=== PATIENT | female | born 1970 | race Caucasian/White ===

== ENCOUNTER 2019-11-11 13:03 | Emergency (ER) | payer BC, SELFPAY ==
[2019-11-11 13:05] VITALS: BP 154/94; PULSE 74; RESP 16; TEMP 37; O2SAT 100; BMI 31.2
--- NOTE | 2019-11-11 14:44 | VDLE_ITS ---
Reason For Study: Pain RIGHT LEFT CFV is compressible, spontaneous, phasic, GSV is normal. competent and demonstrates normal CFV is compressible, spontaneous, phasic, augmentation. competent, and demonstrates normal Procedure augmentation. Exam performed portable in ED. FV is compressible, spontaneous, phasic, A preliminary report was called and/or faxed competent and demonstrates normal to [place]. augmentation. POP V is compressible, spontaneous, phasic, competent and demonstrates normal augmentation. T/P Trunk is compressible. PTV is compressible. LT PerV is compressible. Interpretation Summary Deep veins of the left lower extremity are patent and compressible segmentally. There is no evidence of left lower extremity deep vein thrombosis. Valvular competence appears intact within the proximal deep venous system on the left . The left great saphenous vein appears patent and compressible segmentally. Ordering Physician: Chiki Alcantara Performed By: Lian Maldonado RVT
--- NOTE | 2019-11-11 14:46 | ED.VISSUMM ---
- ER Visit Summary Date of Service: 11/11/19 Chief Complaint: Discomfort and fluttering behind her left knee History of Present Illness: The patient is a 49 F's medical history. Prior appendectomy. No prior leg surgery. Patient states she works in [employer] at a business and states she is on her feet 50 hours a week. However she has been off in the last week. She denies any falls, injury or trauma. No history of DVT or PE. No recent travel, surgery or immobilization. She denies any calf pain. She says she has discomfort behind her left knee and a fluttering sensation that is off and on. She denies any leg pain. She denies any symptoms of claudication. She is a smoker. Physical Examination: White female no acute distress vital signs are stable afebrile. HEENT exam normal. Neck nontender no lymphadenopathy. Lungs clear to auscultation bilaterally. Heart regular rhythm no murmur. Abdomen is soft and nontender. Normal bowel sounds no peritoneal signs. Extremities moves all 4. Neurovascular intact. Both calves are nontender without cords or edema. Are equal and symmetrical in size. She describes a fullness behind her left knee I do not appreciate on exam. The knee itself has no effusion. No swelling. She has normal flexion extension. There is no redness or warmth. She is equal and symmetrical strong DP pulses. Normal dorsi plantar flexion. She has good circulation of both feet. Normal motor strength and sensation of both feet. Neurologic exam normal. Test Results: Noninvasive study left lower extremity right is normal as I was informed by the registered pharmacy technician. Emergency Department Course and Treatment: Patient's exam is unremarkable. Clinically this does not sound like claudication. She is a good pulse. Both feet are warm to the touch and have normal cap refill. Ultrasound to be done to rule out a Hernandez's cyst versus a DVT which I think is unlikely. Treatment Plan: Repeat exam at 1530 no change. Discharged home with follow-up if not improving. Tylenol and Motrin for pain. Disposition: Discharge Impression: Left posterior knee pain in the popliteal fossa secondary to musculoskeletal etiology This note was generated with [employer] dictation software. It may contain incorrect words, spelling, and punctuation that were not noted in review of the chart prior to signing ED Disposition - Plan for ED Patient: Referrals: Care Physician,No Primary [Primary Care Provider] -
--- NOTE | 2019-11-11 15:32 | ED.DEP ---
ED Disposition - Plan for ED Patient: Disposition: Home or Assisted Living Referrals: Jesús Becerra MD [STAFF PHYSICIAN] - 1 Week if not improving Additional Instructions: Motrin for pain and inflammation and Tylenol for pain. Ice to posterior knee. Follow-up if not improving. Knee pain secondary to musculoskeletal etiology
--- NOTE | 2019-11-11 15:51 | ED.RN ---
DISCHARGE INSTRUCTIONS GIVEN TO AND REVIEWED WITH PATIENT, PATIENT DENIES QUESTIONS OR CONCERNS AND VOICES UNDERSTANDING OF DISCHARGE INSTRUCTIONS. PT AMBULATES OUT OF ROOM WITHOUT DIFFICULTY.
== END 2019-11-11 15:51 | disposition home or self-care (01) ==
PROVIDERS: Emergency Provider Emergency Medicine
DX: M25.562 Pain in left knee (principal); F17.200 Nicotine dependence, unspecified, uncomplicated
CPT/HCPCS: 93971; 99282

== ENCOUNTER → 2020-05-30 | Outpatient (CLI) | payer BC, SELFPAY | END | disposition home or self-care (01) | LOC: LABSPEC 18:01 | PROVIDERS: Referring Provider Family Medicine; Visit Provider Family Medicine | DX: Z20.828 Contact with and (suspected) exposure to other viral communicable diseases (principal) | CPT/HCPCS: 87635; 94799; U0003 ==

== ENCOUNTER → 2022-07-02 | Outpatient (CLI) | payer BC, SELFPAY ==
[2022-07-02 18:19] LABS: ALB/GLOB Ratio 1.2 RATIO (0.9-2.4); AST(SGOT) 17 U/L (15-37); Alanine Aminotransfer ALT/SGPT 32 U/L (13-56); Alkaline Phosphatase 67 U/L (45-117); Anion Gap 7 (5-15); BUN 16 mg/dL (7-18); BUN/Creat Ratio 27.4 RATIO (10-20); Chloride 108 mmol/L (98-107); Creatinine, Serum 0.58 mg/dL (0.55-1.02); EST Glomerular Filtration Rate 114 mL/min (>60); Est Glom Filt Rate - Afr Amer 138 mL/min (>60); Globulin 3.3 g/dL (2.2-4.2); Glucose 90 mg/dL (74-106); Potassium 3.4 mmol/L (3.5-5.1); Protein, Total 7.3 g/dL (6.4-8.2); Sodium Level 140 mmol/L (136-145)
[2022-07-03 09:19] LABS: Hepatitis B Surface Antigen Non-Reactive (Nonreactive)
== END | disposition home or self-care (01) ==
LOC: MTLAB 15:18
PROVIDERS: PCP Family Medicine; Referring Provider Internal Medicine Gastroenterology; Visit Provider Internal Medicine Gastroenterology
DX: B19.20 Unspecified viral hepatitis C without hepatic coma (principal)
CPT/HCPCS: 36415; 80053; 82105; 87340; 87522; 87902

== ENCOUNTER → 2022-07-21 | Outpatient (CLI) | payer BC, SELFPAY ==
--- NOTE | 2022-07-21 08:16 | US_ITS ---
STUDY: ABDOMINAL ULTRASOUND - RIGHT UPPER QUADRANT REASON FOR VISIT: Female, 52 years old chronic hepatitis C. TECHNIQUE: Ultrasound evaluation of the right upper quadrant was performed with real-time and static nickerson-scale imaging. TECHNICAL QUALITY: Adequate. COMPARISON: None. FINDINGS: Liver: The liver measures 14.1 cm. There is normal echogenicity of the liver. The bile ducts are within normal limits. There is hepatic color flow. The direction of portal flow is hepatopetal. There is no demonstrated mass lesion. Gallbladder: Normal distended gallbladder. The gallbladder wall measures 2 mm. There is a negative sonographic López''s sign. There is no pericholecystic fluid. There are no gallstones. Common Bile Duct (C.B.D.): The common bile duct measures 3 mm. Pancreas: Normal size of the head, body and tail of the pancreas. There is normal echogenicity of the pancreas. There is no demonstrated pancreatic mass or cyst. The pancreatic duct is not dilated. Right Kidney: Normal size of the right kidney. The right kidney measures 9.7 x 5.2 x 5.0 cm. Normal renal cortex. The right cortex measures 1.6 cm. There is no demonstrated renal mass or cyst. There is no right hydronephrosis. US/Abdomen Limited IMPRESSION: Normal right upper quadrant ultrasound examination. Electronically Signed: Isac Caballero MD at 10:56 EDT ,
--- NOTE | 2022-07-21 08:16 | US_ITS ---
STUDY: ABDOMINAL ULTRASOUND - ELASTOGRAPHY REASON FOR VISIT: Female, 52 years old. Chronic hepatitis C. TECHNIQUE: Liver stiffness measurements were obtained on a MagForce RS 85 ultrasound machine using a CA 1-7 probe following the SRU guidelines. 3 measurements were obtained using a 2-D-SWE method. The IQR/M was 18% suggesting a quality data set. TECHNICAL QUALITY: Adequate. COMPARISON: Comparison is made with prior study done earlier today. FINDINGS: Liver: There is no demonstrated mass lesion. Median liver stiffness measured 12 kPa. US/Elastography Parenchyma/Organ IMPRESSION: Liver stiffness measures 12 kPa compatible with F2-F3 (Mild to moderate liver fibrosis) Metavir score. Electronically Signed: Clinton Slade MD at 8:34 EDT ,
== END | disposition home or self-care (01) ==
PROVIDERS: PCP Family Medicine; Referring Provider Internal Medicine Gastroenterology; Visit Provider Internal Medicine Gastroenterology
DX: B19.20 Unspecified viral hepatitis C without hepatic coma (principal)
CPT/HCPCS: 76705; 76981

== ENCOUNTER → 2023-04-30 | Outpatient (CLI) | payer OTHER, SELFPAY ==
--- NOTE | 2023-04-30 | BRBX_PTH ---
PATIENT: SHALOM ROBERT LOC: [facility] U#:[id number] AGE/SX: 53/F ROOM: RE04/30/[address]: Dr. Eleazar Mason MD : 1970 BED: DIS: 04/30/2023 SPEC #: [id number] RECD: 04/30/23 11:44 STATUS: DAJUAN REMiguel #: [id number] MILE: 04/30/23 00:[address]: Eleazar Mason DEPT: SURGICAL PATHOLOGY RECD BY: Kyaw Hernandez ENTERED: 04/30/23 11:44 SP TYPE: BREAST BX OTHR DR: Dr. Telma Beth, DO Tissues: Left breast, NOS Procedures: Surgery Specimen Level IV HEADER OPERATION: Left stereotactic breast biopsy PRE-OP DIAGNOSIS: Left breast 1 o'clock position microcalcifications TISSUE SUBMITTED: Left breast core tissue ISCHEMIC TIME: 1 minute FIXATION TIME: 8.5 hours MICROSCOPIC DIAGNOSIS Left breast at 1 o'clock, stereotactic core biopsy: Benign collagenized nodule with clustered banal microcalcifications. Focal involutional change with banal microcalcifications. Focal intraductal hyperplasia without atypia. Minimal fibrocystic change, non-proliferative. No evidence of malignancy. AM:debi 05/01/2023 MICROSCOPIC DESCRIPTION Slides are reviewed. GROSS DESCRIPTION Received in fixative is one container labeled with the patient's name and designated left breast. The specimen consists of multiple elongated fragments of mejía-yellow fibroadipose tissue mixed with blood clot that in aggregate measure 5.0 x 3.0 x 0.3 cm. The entire specimen is submitted in two cassettes. / CLAUDY:debi 04/30/2023 TC:5 CPT: 13661
--- NOTE | 2023-04-30 10:31 | PCM.HP.BLA ---
History and Physical Date of Admission: 04/30/23 Visit Reasons: Birads 4/5 L Breast Chief Complaint: birads 4/5 l breast Allergies amoxicillin [Amoxicillin] Allergy (Verified 11/11/19 13:04) Anaphylaxiserythromycin base [Erythromycin Base] Allergy (Verified 11/11/19 13:04) Anaphylaxis Medications amlodipine 10 mg tablet 10 mg PO DAILY 04/24/23 [History Confirmed 04/24/23] simvastatin 20 mg tablet 20 mg PO DAILY 04/24/23 [History Confirmed 04/24/23] PFSH Family History (Updated 04/24/23 @ 14:03 by Korin Medley) Mother CancerFather Heart diseaseMother Hypertension Social History (System 06/20/19 @ 12:42 by Lucrecia Gardner) Smoking Status: Current every day smoker HPI HPI HPI: 63-year-old female. She presents for surgical consultation regarding an abnormal mammogram. 53-year-old female. A0. Menarche age 14. First child born when she was 21. She did breast-feed. No history of previous breast biopsies. Family history is negative for breast cancer. At [facility] as an outpatient on April 21, 2023 she had screening mammography. This suggested a 7 mm group of punctate calcifications 1 o'clock position left breast. BI-RADS 0. She then returned on April 22 and had diagnostic films. The group of calcifications were felt to be clustered in that area BI-RADS Category 4 suspicious. No other acute findings identified. She has not had any breast tenderness she does not and did not detect any masses. No nipple discharge. She is employed at [employer]. ROS General General: Yes fatigue; No weight change, appetite, colon cancer, breast cancer or weakness HEENT HEENT: No difficulty swallowing, eye injury, eye surgery, swollen glands or hoarseness Endo Endocrine: No thyroid disease, diabetes mellitus, thyroid cancer, Hair loss, heat intolerance or cold intolerance Skin Skin: No rash or changing moles Breast Breast: No left breast lump, right breast lump, nipple discharge, breast pain, abnormal mammogram, abnormal US or breast enlargement Musc Musculoskeletal: No back problems, arthritis, rheumatoid arthritis, gout or joint pain Cardio Cardiovascular: Yes high blood pressure; No murmur, pacemaker, heart disease, atrial fibrillation, heart attack, heart stent, palpitations, shortness of breat with exertion or chest pain Psych Psychiatric: Yes anxiety; No depression or hearing voices Resp Respiratory: No shortness of breath, No sleep apnea, No cough, No COPD, No asthma, No emphysema and No wheezing Gastro Gastrointestinal: No abdominal pain, No nausea or vomiting, No diarrhea, No constipation, No blood in stool, No acid reflux, No hemorrhoids, No ulcers, No gallbladder problem and No black,tarry stools Chris Hematologic: No blood thinners, No blood disorders, No bleeding, No anemia and No blood clots Neuro Neurologic: No system reviewed and no additional complaints, except as documented, No as per HPI, No abnormal gait, No abnormal hearing, No abnormal movements, No abnormal speech, No behavioral changes, No burning sensations, No confusion, No convulsions, No disequilibrium, No dizziness, No localized weakness, No frequent falls, No headache(s), No lack of coordination, No loss of vision, No memory loss, No numbness, No other visual disturbances, No radicular pain, No restless legs, No sensory deficit, No syncope, No tingling, No tremor(s), No weakness and No other Exam Const General: cooperative, comfortable and no acute distress Other: Dry smoker's cough noted HENMT Head: normal to inspection Eyes General: appearance normal, both eyes and all related structures Neck Neck: normal visual inspection Chest Other: Increased anterior posterior diameter Bilateral breasts: No focal mass. No nipple discharge. No axillary or clavicular adenopathy Resp Other: Slightly diminished respiratory excursion, clear in the apices, some scattered dry rales in the bases Cardio Rate: regular rate Rhythm: regular rhythm GI Palpation: soft and no hepatosplenomegaly Musc Cervical Spine: normal cervical lordosis Skin General: no rashes or lesions noted Neuro General: patient alert, patient awake and patient oriented x3 Extrem General: no calf tenderness Psych Appearance: grossly normal Assessment and Plan Assessment and Plan (1) Abnormal mammogram of left breast: Status: Acute Plan: I have personally reviewed the patient's bilateral mammograms concur that there is an area of clustered microcalcifications with well-defined calcifications in the upper outer quadrant left breast 1 o'clock position. BI-RADS 4. I recommended the patient a stereotactic needle core biopsy. I discussed the technique, benefit, risk, alternatives. She has had an opportunity ask and have questions answered. We will schedule and proceed at her discretion. I very much appreciate the kind opportunity of assisting with her surgical care. Copy: Dr. Janneth Mason M.D., F.A.C.S. I have examined the patient and the H&P has been reviewed. There are no clinical changes since date of exam. Eleazar Mason M.D., F.A.C.S.
--- NOTE | 2023-04-30 11:06 | PCM.OPRPT ---
Report of Operation Date of Procedure: 04/30/23 Pre-Operative Diagnosis: Clustered microcalcifications upper outer quadrant left breast Post-Operative Diagnosis: Same Surgery/Procedure Performed:: Stereotactic needle core biopsy upper outer quadrant left breast Description of Surgical Findings:: Timeout informed consent was obtained. 53-year-old female was taken to the mammography suite placed prone on the stereotactic table the left breast was placed in the lateral medial view of the microcalcifications in question rapidly identified and stereotactic images were obtained digital information obtained on the single target site the breast was prepped with Betadine 1% lidocaine was used as a local anesthetic total of 8 cc was used a small stab incision was created and a gauge resolved needle was advanced to prefire depth prefire films were obtained demonstrating good localization the device was fired 6 cores were taken specimen mammograms are obtained one of the cores appear to have a vast majority of the microcalcifications present. A marking clip was left at 12 o'clock position it is of note that the patient did have bleeding out through the resolve needle it was removed and immediate pressure was held upon the breast the patient was released from the device rolled over onto her back and again direct pressure extensively held upon the biopsy site. It was inspected and became hemostatic. Steri-Strip Telfa OpSite dressing applied. The cores were immediately placed in formalin for analysis. She was given activity and wound care instructions. Ice pack was provided. She will be notified of pathology results as they become available. At the completion of the procedure hemostasis was intact. Total blood loss approximately 20 cc. Eleazar Mason M.D., F.A.C.S. Surgeon: Eleazar Mason Type of Anesthesia: Local
== END | disposition home or self-care (01) ==
LOC: BIRAD 09:53
PROVIDERS: PCP Family Medicine; Referring Provider Surgery; Visit Provider Surgery
DX: N60.12 Diffuse cystic mastopathy of left breast (principal); N62 Hypertrophy of breast; F17.200 Nicotine dependence, unspecified, uncomplicated
CPT/HCPCS: 19081; 88305; J7050